=== PATIENT | male | born 1980 | race Native Hawaiian/Other Pacific Islander ===

== ENCOUNTER 2017-02-15 22:10 | Emergency (ER) | payer OTHER ==
[~2017-02-15] VITALS: Ht 185.4 cm; Wt 125.0 kg
[2017-02-15] MEDS ORDERED: [UNRECOGNIZED DRUG - REMARK] PO (22:26)
[2017-02-16] MEDS ORDERED: KETOROLAC TROMETHAMINE 30 MG/ML VIAL IM ONE (00:15)
[2017-02-16 01:33] VITALS: BP 137/93
== END 2017-02-16 01:35 | disposition home or self-care (01) ==
LOC: EMS 22:11
DX: M72.2 Plantar fascial fibromatosis (principal); F17.210 Nicotine dependence, cigarettes, uncomplicated
CPT/HCPCS: 73620; 96372; 99284; J1885

== ENCOUNTER 2017-04-04 21:53 | Inpatient (IN) | payer OTHER ==
[~2017-04-04] VITALS: Ht 182.9 cm; Wt 123.8 kg
[~2017-04-04 21:53] MED LIST: [UNRECOGNIZED DRUG - REMARK] PO
[2017-04-04] MEDS ORDERED: HTN MEDS PO (22:16)
[2017-04-04] MEDS ORDERED: OxyCODONE HCL/ACETAMINOPHEN 5-325 MG TABLET PO ONE (23:30)
[2017-04-05] VITALS (7 sets, daily range): BP systolic 111–134; BP diastolic 68–92
[2017-04-05 00:31] LABS: EOSINOPHILS % (AUTO) 1.3 % (1.0-6.0); HEMATOCRIT 49.7 % (41-53); HEMOGLOBIN 16.6 g/dL (13.5-17.5); LYMPHOCYTES # (AUTO) 2.1 K/uL (1.0-4.8); MEAN CORPUSCULAR HEMOGLOBIN 27.9 pg (26.0-34.0); MEAN CORPUSCULAR HGB CONC 33.4 G/dL (31.0-37.0); MEAN CORPUSCULAR VOLUME 83 fL (80-100); MONOCYTES # (AUTO) 0.4 K/uL (0.1-1.0); MONOCYTES % (AUTO) 2.9 % (2.0-9.0); NEUTROPHILS % (AUTO) 78.8 % (40.0-70.0); PLATELET COUNT (AUTO) 219 K/uL (150-450); RED BLOOD CELL COUNT(AUTO) 5.95 MIL/uL (4.50-5.90); RED CELL DISTRIBUTION WIDTH 13.6 % (11.5-14.5); WHITE BLOOD COUNT (AUTO) 12.6 K/uL (4.5-11.0)
[2017-04-05 00:41] LABS: PROTHROMBIN TIME 10.7 SEC (9.4-11.6)
[2017-04-05 00:43] LABS: ALANINE AMINOTRANSFERASE 23 U/L (12-78); ALBUMIN 3.5 g/dL (3.4-5.0); ANION GAP 11 mmol/L (8-16); ASPARTATE AMINOTRANSFERASE 15 U/L (15-37); BILIRUBIN,TOTAL 0.6 mg/dL (0.1-1.0); CALCIUM, TOTAL 8.9 mg/dL (8.8-10.5); CARBON DIOXIDE 25 mmol/L (22-29); CHLORIDE 105 mmol/L (98-107); CREATININE 1.28 mg/dL (0.60-1.30); GLOMERULAR FILTR. RATE CALC > 60 mL/min (>60); POTASSIUM 3.4 mmol/L (3.5-5.1); SODIUM SERUM 141 mmol/L (136-145); TOTAL PROTEIN, SERUM 7.3 g/dL (6.4-8.2); UREA NITROGEN, BLOOD 10 mg/dL (7-18)
[2017-04-05] MEDS ORDERED: AMPICILLIN SODIUM/SULBACTAM NA 3 GM in SODIUM CHLORIDE 0.9% 100 ML IV SCH ×2 (03:00→19:00)
[2017-04-05] MEDS ORDERED: SODIUM CHLORIDE 0.9% 500 ML IV ONE (03:59)
[2017-04-05] MEDS ORDERED: PNEUMOCOCCAL VACCINE POLYVALENT 0.5 ML VIAL [PPSV23] IM ONE (04:00)
[2017-04-05] MEDS ORDERED: HYDROCODONE/ACETAMINOPHEN 10-325 MG TABLET PO PRN (08:45)
[2017-04-05] MEDS ORDERED: DEXTROSE 5%-0.45% SODIUM CHL 1,000 ML IV ONE (08:45)
[2017-04-05] MEDS: MORPHINE SULFATE 2 MG/ML SYRINGE IVP PRN ×2 (09:03→20:19)
[2017-04-05] MEDS: POTASSIUM CHL 10 MEQ/WATER 50 ML IV SCH ×2 (09:28→14:14)
[2017-04-05] MEDS ORDERED: POTASSIUM CHL 10 MEQ/WATER 50 ML IV PRN (09:30)
[2017-04-05] MEDS ORDERED: ACETAMINOPHEN 325 MG TABLET PO PRN (09:30)
[2017-04-05] MEDS ORDERED: MAGNESIUM HYDROXIDE SUSPENSION 30 ML UDCUP PO PRN (09:30)
[2017-04-05] MEDS ORDERED: POTASSIUM CHLORIDE 20 MEQ ER TABLET PO PRN (09:30)
[2017-04-05] MEDS ORDERED: RINGERS SOLUTION,LACTATED 1,000 ML IV ONE ×2 (10:34→11:00)
[2017-04-05] MEDS ORDERED: BUPIVACAINE 0.25%/EPI 1:200,000/PF 10 ML VIAL ONE ×2 (11:59→12:02)
[2017-04-05] MEDS ORDERED: MIDAZOLAM HCL 2 MG/2 ML VIAL IVP ONE (12:00)
[2017-04-05] MEDS ORDERED: PROPOFOL 1% 20 ML VIAL IVP ONE (12:00)
[2017-04-05] MEDS ORDERED: PHENYLEPHRINE HCL 10 MG/ML VIAL IVP ONE (12:00)
[2017-04-05] MEDS ORDERED: CefoTEtan DISODIUM 1 GM/VIAL IVP ONE (12:00)
[2017-04-05] MEDS ORDERED: METOCLOPRAMIDE HCL 5 MG/ML 2 ML VIAL IVP ONE (12:00)
[2017-04-05] MEDS ORDERED: ALBUTEROL SULFATE HFA 90 MCG/PUFF 8 GM INHALER IH ONE (12:00)
[2017-04-05] MEDS ORDERED: ETOMIDATE 2 MG/ML 10 ML VIAL IVP ONE (12:00)
[2017-04-05] MEDS ORDERED: SUCCINYLCHOLINE CHLORIDE 20 MG/ML 10 ML VIAL IVP ONE (12:00)
[2017-04-05] MEDS ORDERED: LIDOCAINE HCL/PF 2% 5 ML SYRINGE IVP ONE (12:00)
[2017-04-05] MEDS ORDERED: FentaNYL CITRATE-PF 100 MCG/2 ML VIAL IVP ONE (12:00)
[2017-04-05] MEDS ORDERED: LIDOCAINE HCL/PF 2% 5 ML VIAL INJ ONE (12:00)
[2017-04-05] MEDS ORDERED: ONDANSETRON HCL 4 MG/2 ML VIAL IVP ONE (12:00)
[2017-04-05] MEDS: HYDROmorphone 2 MG/ML SYRINGE IVP PRN ×3 (12:26→12:45)
[2017-04-05] MEDS ORDERED: MEPERIDINE-PF 25 MG/ML SYRINGE ONE (12:29)
[2017-04-05] MEDS ORDERED: MEPERIDINE-PF 25 MG/ML SYRINGE IVP PRN (12:30)
[2017-04-05] MEDS ORDERED: FentaNYL CITRATE-PF 100 MCG/2 ML VIAL IVP PRN (12:30)
[2017-04-05] MEDS ORDERED: HYDROmorphone 2 MG/ML SYRINGE ONE (12:30)
[2017-04-05] MEDS ORDERED: OXYGEN THERAPY IH SCH (12:30)
[2017-04-05] MEDS: PIPERACILLIN SODIUM/TAZOBACTAM 4.5 GM in DEXTROSE 5%-WATER 100 ML IV SCH ×2 (15:14→21:27)
[2017-04-05] MEDS: DOCUSATE SODIUM 100 MG CAPSULE PO SCH (21:42)
[2017-04-06 04:41] VITALS: BP 125/86
[2017-04-06] MEDS: PIPERACILLIN SODIUM/TAZOBACTAM 4.5 GM in DEXTROSE 5%-WATER 100 ML IV SCH ×3 (05:41→21:08)
[2017-04-06 06:49] LABS: BASOPHILS % (AUTO) 0.2 % (0.0-2.0); EOSINOPHILS % (AUTO) 3.2 % (1.0-6.0); HEMATOCRIT 47.3 % (41-53); HEMOGLOBIN 16.2 g/dL (13.5-17.5); LYMPHOCYTES # (AUTO) 1.9 K/uL (1.0-4.8); LYMPHOCYTES % (AUTO) 17.5 % (22.0-44.0); MEAN CORPUSCULAR HEMOGLOBIN 28.4 pg (26.0-34.0); MEAN CORPUSCULAR HGB CONC 34.3 G/dL (31.0-37.0); MEAN CORPUSCULAR VOLUME 83 fL (80-100); MONOCYTES # (AUTO) 0.7 K/uL (0.1-1.0); MONOCYTES % (AUTO) 6.9 % (2.0-9.0); NEUTROPHILS # (AUTO) 7.7 K/uL (1.8-7.7); NEUTROPHILS % (AUTO) 72.2 % (40.0-70.0); PLATELET COUNT (AUTO) 198 K/uL (150-450); RED BLOOD CELL COUNT(AUTO) 5.72 MIL/uL (4.50-5.90); WHITE BLOOD COUNT (AUTO) 10.6 K/uL (4.5-11.0)
[2017-04-06 07:12] LABS: ANION GAP 12 mmol/L (8-16); CALCIUM, TOTAL 8.5 mg/dL (8.8-10.5); CARBON DIOXIDE 26 mmol/L (22-29); CHLORIDE 105 mmol/L (98-107); GLOMERULAR FILTR. RATE CALC > 60 mL/min (>60); POTASSIUM 3.5 mmol/L (3.5-5.1); SODIUM SERUM 143 mmol/L (136-145); UREA NITROGEN, BLOOD 11 mg/dL (7-18)
[2017-04-06 07:45] VITALS: BP 132/85
[2017-04-06] MEDS: DOCUSATE SODIUM 100 MG CAPSULE PO SCH ×2 (08:59→21:08)
[2017-04-06] MEDS: PANTOPRAZOLE SODIUM 40 MG/VIAL IVP SCH (09:12)
[2017-04-06] MEDS: LISINOPRIL 5 MG TABLET PO SCH ×2 (10:30→12:35)
[2017-04-06 11:34] VITALS: BP 132/86
[2017-04-06] MEDS ORDERED: POTASSIUM CHLORIDE 20 MEQ ER TABLET PO PRN ×2 (11:45)
[2017-04-06 11:55] VITALS: BP 97/49
[2017-04-06] MEDS ORDERED: SODIUM CHLORIDE 0.9% 100 ML ONE (12:39)
[2017-04-06 15:44] VITALS: BP 128/83
[2017-04-06 19:55] VITALS: BP 130/73
[2017-04-07] VITALS (7 sets, daily range): BP systolic 104–151; BP diastolic 61–89
[2017-04-07] MEDS: PIPERACILLIN SODIUM/TAZOBACTAM 4.5 GM in DEXTROSE 5%-WATER 100 ML IV SCH ×3 (05:22→22:23)
[2017-04-07] MEDS: PANTOPRAZOLE SODIUM 40 MG/VIAL IVP SCH (08:57)
[2017-04-07] MEDS: LISINOPRIL 5 MG TABLET PO SCH (08:57)
[2017-04-07] MEDS: DOCUSATE SODIUM 100 MG CAPSULE PO SCH ×2 (08:57→21:08)
[2017-04-07] MEDS: CARVEDILOL 3.125 MG TABLET PO SCH ×2 (13:24→21:08)
[2017-04-08 04:19] VITALS: BP 116/75
[2017-04-08] MEDS: PIPERACILLIN SODIUM/TAZOBACTAM 4.5 GM in DEXTROSE 5%-WATER 100 ML IV SCH ×3 (06:16→21:27)
[2017-04-08 07:44] VITALS: BP 112/73
[2017-04-08] MEDS: CARVEDILOL 3.125 MG TABLET PO SCH ×2 (08:20→21:26)
[2017-04-08] MEDS: DOCUSATE SODIUM 100 MG CAPSULE PO SCH ×2 (08:20→21:26)
[2017-04-08] MEDS: PANTOPRAZOLE SODIUM 40 MG/VIAL IVP SCH (08:21)
[2017-04-08] MEDS: LISINOPRIL 5 MG TABLET PO SCH (08:24)
[2017-04-08 11:08] VITALS: BP 120/73
[2017-04-08 16:43] VITALS: BP 122/64
[2017-04-08 19:43] VITALS: BP 120/70
[2017-04-09 00:27] VITALS: BP 143/65
[2017-04-09 05:07] VITALS: BP 131/79
[2017-04-09] MEDS: PIPERACILLIN SODIUM/TAZOBACTAM 4.5 GM in DEXTROSE 5%-WATER 100 ML IV SCH ×2 (06:13→14:47)
[2017-04-09 07:23] VITALS: BP 132/83
[2017-04-09] MEDS: PANTOPRAZOLE SODIUM 40 MG/VIAL IVP SCH (08:06)
[2017-04-09] MEDS: CARVEDILOL 3.125 MG TABLET PO SCH (08:46)
[2017-04-09] MEDS: DOCUSATE SODIUM 100 MG CAPSULE PO SCH (08:47)
[2017-04-09] MEDS: LISINOPRIL 5 MG TABLET PO SCH (08:47)
[2017-04-09 11:37] VITALS: BP 106/46
[2017-04-09] MEDS ORDERED: CARV3 PO (13:00)
[2017-04-09] MEDS ORDERED: LISI-660 PO (13:01)
[2017-04-09] MEDS ORDERED: DSS100 PO (13:02)
[2017-04-09] MEDS ORDERED: ASPI81 PO (13:49)
[2017-04-09] MEDS ORDERED: HYDR-309 PO (13:52)
[2017-04-09] MEDS ORDERED: SODIUM CHLORIDE 0.9% 100 ML ONE (14:32)
[2017-04-09] MEDS ORDERED: CEPH500 PO (15:47)
[2017-04-09] MEDS ORDERED: METR500 PO (15:47)
[2017-04-09 16:15] VITALS: BP 114/62
== END 2017-04-09 17:30 | disposition home or self-care (01) | DRG 710 ==
LOC: EMS 21:57 → 6N 04-05 00:30 → 5S 04-05 11:35 → 5N 04-08 16:55
PROVIDERS: ADMIT Internal Medicine; ATTEND Internal Medicine
PROC: 0D9P0ZZ Drainage of Rectum, Open Approach (ICD-10-PCS; principal; 2017-04-05 12:00)
DX: A41.9 Sepsis, unspecified organism (principal); I11.0 Hypertensive heart disease with heart failure; I50.9 Heart failure, unspecified; I42.0 Dilated cardiomyopathy; F17.210 Nicotine dependence, cigarettes, uncomplicated; Z53.29 Procedure and treatment not carried out because of patient's decision for other reasons; K61.1 Rectal abscess; E87.6 Hypokalemia; E66.9 Obesity, unspecified; Z68.37 Body mass index [BMI] 37.0-37.9, adult; Z71.6 Tobacco abuse counseling; Z79.899 Other long term (current) drug therapy; Z28.21 Immunization not carried out because of patient refusal
CPT/HCPCS: 84132; 87070; 87205; 90471; 93005; 93306; 99285; C9113; J0295; J0330; J1170; J2175; J2250; J2270; J2370; J2405; J2543; J2704; J2765; J3010; J3480; J3490; J3535; J7040; J7050; J7060; J7120